=== PATIENT | female | born 1950 | race Two or more races ===

== ENCOUNTER 2023-02-22 11:15 | Inpatient (IN) | payer OTHER ==
[~2023-02-22] VITALS: Ht 162.6 cm; Wt 64.0 kg
[2023-02-22 10:45] LABS: PH,URINE 6.5 (5.0-8.0); URINE APPEARANCE Cloudy; URINE BILIRRUBIN Negative (NEGATIVE); URINE COLOR Yellow; URINE GLUCOSE Negative (NEGATIVE); URINE LEUKOCYTE Large; URINE NITRATE Negative; URINE PROTEIN Trace (NEGATIVE)
[2023-02-22 10:50] LABS: URINE BACTERIA 138.5 uL (0.0-1933); URINE EPITHELIAL CELLS 7.5 uL (0.0-38.8); URINE RBC 40.8 uL (0.0-20.8); URINE WBC 2268.2 uL (0.0-23.2)
[2023-02-22 11:24] LABS: URINE BLOOD TRACES
[2023-02-27 15:04] LABS: HEMATOCRIT 38.2 % (36.0-45.00); HEMOGLOBIN 12.2 g/dL (12.0-15.00); MEAN CELL VOLUME 79.4 fL (80.00-100.00); MEAN CORPUSCULAR HEMOGLOBIN 25.3 pg (27.00-32.0); MEAN CORPUSCULAR HGB CONC 31.9 g/dl (32.0-36.0); PLATELET COUNT 254 K/uL (150-450); RED BLOOD COUNT 4.81 M/uL (4.00-6.00); RED CELL DISTRIBUTION WIDTH 15.8 % (11.5-14.5)
[2023-02-28 07:39] LABS: HEMOGLOBIN 12.4 g/dL (12.0-15.00); MEAN CORPUSCULAR HEMOGLOBIN 25.8 pg (27.00-32.0); MEAN CORPUSCULAR HGB CONC 32.7 g/dl (32.0-36.0); PLATELET COUNT 222 K/uL (150-450); RED BLOOD COUNT 4.81 M/uL (4.00-6.00); RED CELL DISTRIBUTION WIDTH 15.7 % (11.5-14.5)
[2023-02-28 08:16] LABS: ALBUMIN 2.9 gm/dL (3.4-5.0); CALCIUM 8.7 mg/dL (8.5-10.1); CREATININE SERUM 0.52 mg/dL (0.55-1.02); GFR 115.59; MAGNESIUM 1.7 mg/dL (1.8-2.4); PHOSPHOROUS 3.6 mg/dL (2.5-4.9); POTASSIUM 4.41 mEq/L (3.5-5.1)
[2023-02-28] MEDS ORDERED: FAMOTIDINE40 MG (08:31)
[2023-02-28] MEDS ORDERED: LEVOCETIRIZINE D5 MG (08:31)
[2023-02-28] MEDS ORDERED: SYNTHROID125 MCG (08:31)
[2023-02-28] MEDS ORDERED: BISOPROLOL-HCT1 EACH (08:31)
[2023-02-28] MEDS ORDERED: ST. JOSEPH ASPI81 M2 (08:31)
[2023-02-28] MEDS ORDERED: PANTOPRAZOLE SO40 MG (08:31)
[2023-02-28] MEDS ORDERED: AMLODIPINE-BEN1 EAC4 (08:31)
[2023-03-01 08:00] LABS: CALCIUM 8.3 mg/dL (8.5-10.1); CREATININE SERUM 0.51 mg/dL (0.55-1.02); GFR 118.21; MAGNESIUM 2.1 mg/dL (1.8-2.4); PHOSPHOROUS 2.6 mg/dL (2.5-4.9); POTASSIUM 3.98 mEq/L (3.5-5.1)
[2023-03-01 08:02] LABS: HEMATOCRIT 33.9 % (36.0-45.00); HEMOGLOBIN 11.1 g/dL (12.0-15.00); MEAN CELL VOLUME 78.6 fL (80.00-100.00); MEAN CORPUSCULAR HEMOGLOBIN 25.6 pg (27.00-32.0); MEAN CORPUSCULAR HGB CONC 32.6 g/dl (32.0-36.0); PLATELET COUNT 203 K/uL (150-450); RED BLOOD COUNT 4.31 M/uL (4.00-6.00); RED CELL DISTRIBUTION WIDTH 16.3 % (11.5-14.5)
== END 2023-03-02 11:57 | disposition home or self-care (01) | DRG 330 ==
LOC: O/R 02-27 05:45 → SURG 02-27 09:30 → SURH 02-27 15:59
PROVIDERS: Internal Medicine Geriatric Medicine; ADMIT Surgery; ATTEND Surgery
PROC: 0DBP4ZZ Excision of Rectum, Percutaneous Endoscopic Approach (ICD-10-PCS; 2023-02-27)
PROC: 0DNW4ZZ Release Peritoneum, Percutaneous Endoscopic Approach (ICD-10-PCS; 2023-02-27)
PROC: 0TN74ZZ Release Left Ureter, Percutaneous Endoscopic Approach (ICD-10-PCS; 2023-02-27)
PROC: 0DJD8ZZ Inspection of Lower Intestinal Tract, Via Natural or Artificial Opening Endoscopic (ICD-10-PCS; 2023-02-27)
PROC: 0JQB0ZZ Repair Perineum Subcutaneous Tissue and Fascia, Open Approach (ICD-10-PCS; 2023-02-27)
PROC: 0DTN4ZZ Resection of Sigmoid Colon, Percutaneous Endoscopic Approach (ICD-10-PCS; principal; 2023-02-27 09:30)
DX: K57.20 Diverticulitis of large intestine with perforation and abscess without bleeding (principal); N32.1 Vesicointestinal fistula; K66.0 Peritoneal adhesions (postprocedural) (postinfection)